=== PATIENT | female | born 1990 | race Caucasian/White ===

== ENCOUNTER 2020-07-01 23:44 | Emergency (ER) | payer OTHER ==
[2020-07-02 00:40] VITALS: BP 112/70; TEMP 98.7; BMI 39.5
[2020-07-02] MEDS ORDERED: ALBUTEROL SO4 2.5/IPRATROPIUM 0.5 INH SOL 3 ML VIAL.NEB. NEB ONE (00:47)
[2020-07-02] MEDS ORDERED: diphenhydrAMINE HCL 12.5 MG/5 ML UNIT-DOSE CUPS PO ONE (00:51)
[2020-07-02] MEDS ORDERED: ONDANSETRON *ODT* 4 MG TABLET SL ONE (00:52)
[2020-07-02] MEDS: ALBUTEROL SO4 2.5/IPRATROPIUM 0.5 INH SOL 3 ML VIAL.NEB. NEB SCH ×3 (01:00→02:29)
[2020-07-02] MEDS ORDERED: ONDANSETRON *ODT* 4 MG TABLET ONE (01:16)
[2020-07-02] MEDS ORDERED: diphenhydrAMINE HCL 12.5 MG/5 ML BULK BOTTLE ONE (01:16)
[2020-07-02] MEDS ORDERED: ALBUTEROL SO4 HFA INHALER IH PRN (02:16)
[2020-07-02] MEDS ORDERED: ALBUTEROL SO4 HFA INHALER IH ONE (02:33)
[2020-07-02 02:36] VITALS: PULSE 113
== END 2020-07-02 02:37 | disposition home or self-care (01) ==
LOC: JER 23:44
PROC: 3E0F7GC Introduction of Other Therapeutic Substance into Respiratory Tract, Via Natural or Artificial Opening (ICD-10-PCS; principal; 2020-07-01)
DX: O99.513 Diseases of the respiratory system complicating pregnancy, third trimester (principal); J45.21 Mild intermittent asthma with (acute) exacerbation; Z3A.27 27 weeks gestation of pregnancy
CPT/HCPCS: 87804; 99283-25; C9803; Q0162; U0003; U0005

== ENCOUNTER 2020-09-06 06:10 | Inpatient (IN) | payer OTHER ==
[2020-09-06] MEDS: ELECTROLYTE-148 SOLN 1,000 ML IV SCH (06:40)
[2020-09-06 07:14] VITALS: BMI 41.6
[2020-09-06] MEDS ORDERED: SUCCINYLCHOLINE CHLORIDE 200 MG/10 ML SYRINGE ONE (07:38)
[2020-09-06] MEDS ORDERED: PROPOFOL 20 ML ONE ×2 (07:38)
[2020-09-06] MEDS ORDERED: ePHEDrine SULFATE 50 MG/1 ML AMPULE ONE ×2 (07:42)
[2020-09-06] MEDS ORDERED: CITRIC ACID/SODIUM CITRATE 30 ML UNIT-DOSE CUP PO ONE (08:19)
[2020-09-06] MEDS ORDERED: SENNOSIDES/DOCUSATE COMBO (SENNA PLUS) TABLET (UD) PO PRN (08:21)
[2020-09-06] MEDS ORDERED: IBUPROFEN 800 MG/8 ML IJ IVPB PRN (08:21)
[2020-09-06] MEDS ORDERED: BENZOCAINE 28 GM HEMORRHOIDAL OINTMENT TP PRN (08:21)
[2020-09-06] MEDS ORDERED: oxyCODONE HCL 5 MG TABLET PO PRN (08:21)
[2020-09-06] MEDS ORDERED: METHYLERGONOVINE MALEATE 0.2 MG/1 ML AMP IM PRN (08:21)
[2020-09-06] MEDS ORDERED: WITCH HAZEL 50% (TUCKS) 40 PAD/JAR PAD TP PRN (08:21)
[2020-09-06] MEDS: OXYTOCIN 20 UNITS in 0.9% NS 20 UNIT/1,000 ML INFUS.BAG IV SCH (09:40)
[2020-09-06] MEDS: PRENATAL VITAMINS W/ FOLIC ACID TABLET (FP) PO SCH (10:05)
[2020-09-06 10:33] LABS: CORD BASE EXCESS -6.7 mmol/L (0-2); CORD HCO3 20.7 mmHg (20-29); CORD PCO2 48.3 mmHg (30-78); CORD pH 7.25 (7.14-7.44)
[2020-09-06 10:34] LABS: CORD HCO3 19.6 mmHg (20-29); CORD PCO2 63.1 mmHg (30-78); CORD pH 7.109 (7.14-7.44)
[2020-09-06] MEDS ORDERED: IBUPROFEN 800 MG/8 ML IJ IVPB ONE (10:47)
[2020-09-06] MEDS ORDERED: OXYTOCIN 20 UNITS in 0.9% NS 20 UNIT/1,000 ML INFUS.BAG IV ONE (10:54)
[2020-09-06] MEDS ORDERED: ONDANSETRON 4 MG/2 ML VIAL IVPUSH PRN (11:18)
[2020-09-06] MEDS ORDERED: ACETAMINOPHEN 500 MG TABLET (FP) PO PRN (11:18)
[2020-09-06 11:58] LABS: HIV INTERPRETATION NEGATIVE (NEGATIVE)
[2020-09-06] MEDS: SIMETHICONE 80 MG TAB.CHEW (FP) PO PRN (18:34)
[2020-09-06] MEDS: ACETAMINOPHEN 325 MG TABLET (FP) PO PRN (18:34)
[2020-09-06] MEDS: IBUPROFEN 600 MG TABLET (FP) PO PRN (18:35)
[2020-09-07] MEDS: IBUPROFEN 600 MG TABLET (FP) PO PRN ×5 (01:54→20:49)
[2020-09-07] MEDS: ACETAMINOPHEN 325 MG TABLET (FP) PO PRN ×4 (01:54→20:49)
[2020-09-07] MEDS: SIMETHICONE 80 MG TAB.CHEW (FP) PO PRN ×3 (01:54→20:49)
[2020-09-07] MEDS ORDERED: oxyCODONE HCL 5 MG TABLET PO PRN (08:21)
[2020-09-07] MEDS ORDERED: BISACODYL 10 MG SUPP.RECT RC PRN (08:21)
[2020-09-07] MEDS: PRENATAL VITAMINS W/ FOLIC ACID TABLET (FP) PO SCH (09:14)
[2020-09-07 10:00] LABS: BASO % 0.3 % (0-2.0); EOS % 2.6 % (0-4.5); HEMATOCRIT 28.9 % (32.4-45.2); LYMPH % 17.1 % (8-40); MCH 22.7 pg (25.7-33.7); MCHC 31.1 g/dl (32.0-36.0); MEAN CELL VOLUME 72.9 fl (80-96); MEAN PLT VOLUME 9.2 fl (7.5-11.1); MONO % 5.6 % (3.8-10.2); NEUT % 74.4 % (42.8-82.8); PLATELET COUNT 231 10^3/uL (134-434); RBC 3.96 M/mm3 (3.60-5.2); RDW 19.5 % (11.6-15.6); WHITE BLOOD COUNT 9.6 K/mm3 (4.0-10.0)
[2020-09-08] MEDS: ACETAMINOPHEN 325 MG TABLET (FP) PO PRN ×2 (02:07→10:12)
[2020-09-08] MEDS: IBUPROFEN 600 MG TABLET (FP) PO PRN ×2 (02:07→10:11)
[2020-09-08] MEDS: SIMETHICONE 80 MG TAB.CHEW (FP) PO PRN ×2 (02:08→10:11)
[2020-09-08] MEDS: ELECTROLYTE-148 SOLN 1,000 ML IV SCH (08:31)
[2020-09-08] MEDS: OXYTOCIN 20 UNITS in 0.9% NS 20 UNIT/1,000 ML INFUS.BAG IV SCH (08:31)
[2020-09-08] MEDS: PRENATAL VITAMINS W/ FOLIC ACID TABLET (FP) PO SCH (10:11)
[2020-09-08 12:35] VITALS: BP 107/69; PULSE 87; TEMP 98
== END 2020-09-08 12:30 | disposition home or self-care (01) | DRG 540 ==
LOC: JLDR 06:10 → J3W 14:45
PROVIDERS: ADMIT Obstetrics & Gynecology; ATTEND Obstetrics & Gynecology
PROC: 10D00Z1 Extraction of Products of Conception, Low, Open Approach (ICD-10-PCS; principal; 2020-09-06)
PROC: 10907ZC Drainage of Amniotic Fluid, Therapeutic from Products of Conception, Via Natural or Artificial Opening (ICD-10-PCS; 2020-09-06)
DX: O34.211 Maternal care for low transverse scar from previous cesarean delivery (principal); O10.913 Unspecified pre-existing hypertension complicating pregnancy, third trimester; O36.63X0 Maternal care for excessive fetal growth, third trimester, not applicable or unspecified; Z3A.38 38 weeks gestation of pregnancy; Z37.0 Single live birth
CPT/HCPCS: 36415; 36600; 82803; 85025; 85461; 86999; 87389; 88307-TC

== ENCOUNTER 2020-12-01 10:55 | Emergency (ER) | payer BC, OTHER ==
[2020-12-01 11:12] VITALS: BP 102/75; PULSE 75; TEMP 98.6; BMI 33.1
== END 2020-12-01 12:49 | disposition home or self-care (01) ==
LOC: JER 10:55
DX: J06.9 Acute upper respiratory infection, unspecified (principal); Z11.52 Encounter for screening for COVID-19
CPT/HCPCS: 99283-25; C9803; U0003; U0005